=== PATIENT | female | born 1995 | race Caucasian/White ===

== ENCOUNTER 2023-03-14 09:46 | Emergency (ER) | payer SELFPAY ==
[2023-03-14 09:51] VITALS: BP 103/65; PULSE 79; RESP 18; TEMP 36.6; O2SAT 99
[2023-03-14 10:38] LABS: Bilirubin Negative (Negative); Blood Negative (Negative); Clarity Clear (Clear); Glucose Negative (Negative); Ketones Negative (Negative); Leukocyte Esterase Small (Negative); Nitrite Negative (Negative); Urobilinogen 0.2 mg/dL (Up to 0.2)
[2023-03-14 11:02] LABS: Bacteria Rare HPF (Negative); C & S Indicated? Yes; Casts Negative LPF (Negative); Crystals Negative HPF (Negative); Epithelial Cells Few HPF (Negative); Mucus Negative (Negative); RBC Negative HPF (0-2); WBC 0-2 HPF (0-5)
--- NOTE | 2023-03-14 15:52 | W.ED.GENAD ---
Discharge Plan Disposition Patient Disposition: Home Discharge Details Clinical Impression: Labial lesion, Acute vulvovaginitis Primary Care Provider: Isabell Kenny ED Provider: Sloane Weiner Home Meds and New Rx's Prescriptions: No Action No Known Home Meds Discharge Instructions Additional Instructions: i will call you with any positive results in a few hours your gonorrhea and chlamydia screen will return in 3-4 days [facility] Referrals: Isabell Kenny MD [Primary Care Provider] - Discharge Data Discharge Date/Time-TO BE ENTERED AT DEPARTURE: 03/14/23 11:11 Medical Decision Making 27-year-old female, in no acute distress, small lesion noted to labia minora, suspect secondary to swelling, some white vaginal discharge, no additional rashes or lesions, patient reports low risk for STD, will pend diagnostic labs for treatment. Pending vaginal path and GC chlamydia at this time, will refer to [facility], actually [facility] Patient did test positive for Swathi, will use Monistat [id number] and return should you have recurrent, worsening, or new symptoms HPI General Date/Time Provider Initiated Documentation: 03/14/23 10:16. HPI Narrative: This 27-year-old female presents with report of lump to her left labia minora, she noticed it today in addition to some burning and itching. Denies significant vaginal discharge. Sexually active and monogamous with single partner, denies any abdominal pain, fever or chills. Denies chance of . Related Data Home Medications Medication Instructions Recorded Confirmed Unknown [No Known Home Meds] 03/14/23 03/14/23 Allergies Allergy/AdvReac Type Severity Reaction Status Date / Time amoxicillin [Amoxicillin] AdvReac Intermediate Skin Rash Unverified 03/14/23 09:54 Penicillins AdvReac Intermediate Skin Rash Unverified 03/14/23 09:54 General Stated Complaint: Urinary REGIS: 3 PFSH All Active Problems (Updated 03/14/23 @ 11:06 by MADDY Currie) Acute vulvovaginitis (Acute) Labial lesion (Acute) Social History Smoking/Tobacco Use Status: Former Tobacco Use Smoking risk assessment performed?: Yes Alcohol Intake: current Drug use: Occasionally Course Vital Signs Vital signs: Vital Signs Temperature 36.6 C 03/14/23 09:51 Pulse 79 03/14/23 09:51 Respiratory Rate 18 03/14/23 09:51 Blood Pressure 103/65 03/14/23 09:51 Pulse Oximetry 99 03/14/23 09:51 Temperature 36.6 C 03/14/23 09:51 Temperature Source Tympanic 03/14/23 09:51 Pulse 79 03/14/23 09:51 Respiratory Rate 18 03/14/23 09:51 Respiratory Effort Normal 03/14/23 09:59 Blood Pressure 103/65 03/14/23 09:51 Blood Pressure Position Sitting 03/14/23 09:51 Pulse Oximetry 99 03/14/23 09:51 Oxygen Delivery Method Room Air 03/14/23 09:51 Oxygen Flow Rate 0 03/14/23 09:51 Pain Level 0 03/14/23 09:51 Lab/Test Results Lab/Test Results: 03/14/23 11:00 Vaginal Vaginitis Screen - Final 03/14/23 09:55 Urine - Reflex from Ua Urine Culture - Pending Laboratory Tests Range/Units 03/14/23 09:55 Urine Color (Yellow) Yellow Urine Clarity (Clear) Clear Urine pH (5-8) 7.0 Ur Specific [place] (1.005-1.025) 1.020 Urine Protein (Negative) mg/dL Negative Urine Ketones (Negative) mg/dL Negative Urine Blood (Negative) Negative Urine Nitrite (Negative) Negative Urine Bilirubin (Negative) Negative Urine Urobilinogen (Up to 0.2) mg/dL 0.2 Ur Leukocyte Esterase (Negative) Small H Urine RBC (0-2) HPF Negative Urine WBC (0-5) HPF 0-2 Ur Epithelial Cells (Negative) HPF Few Urine Crystals (Negative) HPF Negative Urine Bacteria (Negative) HPF Rare Urine Casts (Negative) LPF Negative Urine Mucus (Negative) Negative Ur Culture Indicated? Yes Urine Glucose (Negative) mg/dL Negative POC- Test(urine) Negative PAWSS Have you Been Recently Intoxicated or Drunk Within the Last 30 days?: No Have you Ever Experienced Previous Episodes of Alcohol Withdrawal?: No Have you ever Experienced Withdrawal Seizures?: No Have you ever Experienced Delirium Tremens(DT)s?: No Have you ever undergone Alcohol Rehabilitation Treatment (i.e, inpt ot outpatient treatment programs)?: No Have you ever Experienced Blackouts?: No Have you ever Combined Alcohol with other Downers within the last 90 days?: No Have you ever Combined Alcohol with any other Substance of Abuse during the last 90 days?: No Positive Blood Alcohol level on Presentation? [PCS.BAL]: No Evidence of Increased Autonomic Activity (i.e. HR>120, tremor, sweating, agitation, nausea)?: No Result: 0
[2023-03-15 13:41] LABS: Chlamydia Result Negative (Negative); GC Result Negative (Negative)
== END 2023-03-14 11:11 | disposition home or self-care (01) ==
PROVIDERS: Emergency Provider Physician Assistant; PCP Family Medicine
DX: B37.31 Acute candidiasis of vulva and vagina (principal)
CPT/HCPCS: 81025; 87491; 87591; 99283; 81003; 81015; 87086; 87480; 87510; 87660